=== PATIENT | female | born 2000 | race American Indian/Alaskan Native ===

== ENCOUNTER 2020-09-24 12:58 | Emergency (ER) | payer SELFPAY ==
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
[2020-09-24 23:48] VITALS: BP 130/84
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
== END 2020-09-25 01:45 | disposition home or self-care (01) ==
LOC: ED 12:58
DX: S53.401A Unspecified sprain of right elbow, initial encounter (principal); S43.401A Unspecified sprain of right shoulder joint, initial encounter; S00.83XA Contusion of other part of head, initial encounter; S00.03XA Contusion of scalp, initial encounter; S10.93XA Contusion of unspecified part of neck, initial encounter; M62.830 Muscle spasm of back; F20.0 Paranoid schizophrenia; Y04.8XXA Assault by other bodily force, initial encounter; Y93.89 Activity, other specified; Y92.009 Unspecified place in unspecified non-institutional (private) residence as the place of occurrence of the external cause; Y99.8 Other external cause status
CPT/HCPCS: 36415; 70450; 70460; 72100; 72125; 84703